=== PATIENT | female | born 1935 | race Caucasian/White ===

== ENCOUNTER 2016-06-17 23:30 | Emergency (ER) | payer OTHER ==
[~2016-06-17] VITALS: Ht 154.9 cm; Wt 43.1 kg
[2016-06-17] MEDS ORDERED: LISINOPRIL40 MG PO (23:47)
[2016-06-17] MEDS ORDERED: NEXIUM 24HR20 MG PO (23:47)
[2016-06-17] MEDS ORDERED: SIMVASTATIN20 MG PO (23:47)
== END 2016-06-18 01:30 | disposition home or self-care (01) ==
LOC: ED 23:30
DX: S70.02XA Contusion of left hip, initial encounter (principal); F17.200 Nicotine dependence, unspecified, uncomplicated; Z90.49 Acquired absence of other specified parts of digestive tract; Z98.890 Other specified postprocedural states; Z88.1 Allergy status to other antibiotic agents; W00.0XXA Fall on same level due to ice and snow, initial encounter; Y93.89 Activity, other specified; Y92.89 Other specified places as the place of occurrence of the external cause; Y99.9 Unspecified external cause status

== ENCOUNTER 2017-04-18 23:19 | Emergency (ER) | payer OTHER ==
[~2017-04-18] VITALS: Ht 154.9 cm; Wt 44.9 kg
[~2017-04-18 23:19] MED LIST: LISINOPRIL40 MG PO; NEXIUM 24HR20 MG PO; SIMVASTATIN20 MG PO
== END 2017-04-19 01:11 | disposition home or self-care (01) ==
LOC: ED 23:19
DX: S90.01XA Contusion of right ankle, initial encounter (principal); F17.200 Nicotine dependence, unspecified, uncomplicated; Z88.1 Allergy status to other antibiotic agents; W10.9XXA Fall (on) (from) unspecified stairs and steps, initial encounter; Y93.89 Activity, other specified; Y92.89 Other specified places as the place of occurrence of the external cause; Y99.8 Other external cause status

== ENCOUNTER → 2018-03-11 | Outpatient (CLI) | payer OTHER | END | disposition home or self-care (01) | LOC: RAD 13:13 | DX: R10.2 Pelvic and perineal pain (principal); Z96.641 Presence of right artificial hip joint ==

== ENCOUNTER → 2018-07-25 | Outpatient (CLI) | payer OTHER | END | disposition home or self-care (01) | LOC: CT 07-15 11:00 | DX: K57.30 Diverticulosis of large intestine without perforation or abscess without bleeding (principal); R11.0 Nausea ==

== ENCOUNTER 2019-03-31 03:31 | Inpatient (IN) | payer OTHER ==
[2019-03-31] VITALS (8 sets, daily range): BP systolic 121–147; BP diastolic 65–86
[~2019-03-31] VITALS: Ht 157.5 cm; Wt 44.2 kg
[2019-03-31 03:49] LABS: BASO # 0.1 10*3/uL (0.0-0.1); BASO % 0.6 % (0.0-1.0); EOS # 0.1 10*3/uL (0.0-0.4); EOS % 1.6 % (1.0-4.0); HEMATOCRIT 32.4 % (37.0-47.0); HEMOGLOBIN 10.4 g/dl (12.0-16.0); LYMPH # 2.6 10*3/uL (1.3-4.4); LYMPH % 32.4 % (27.0-41.0); MEAN CELL VOLUME 103.5 fl (81.0-99.0); MEAN CORPUSCULAR HGB 33.2 pg (27.0-31.0); MEAN CORPUSCULAR HGB CONC 32.1 g/dl (33.0-37.0); MONO # 0.8 10*3/uL (0.1-1.0); MONO % 9.6 % (3.0-9.0); NEUT # 4.4 10*3/uL (2.3-7.9); NEUT % 55.2 % (47.0-73.0); PLATELET COUNT AUTOMATED 344 10*3/uL (130-400); RED BLOOD COUNT 3.13 10*6/uL (4.10-5.10); RED CELL DISTRI WIDTH 12.6 % (0-14.5)
--- NOTE | 2019-03-31 03:55 | NUR ---
PATIENT GIVEN 6MG OF ADENOSINE FOR SVT AT A RATE OF 155. DR KWOK AT BEDSIDE WHILE GIVEN AND HOOKED UP TO THE MONITOR AND REWIND OPERATOR. PATIENT TOLERATED WELL AND 97BPM NSR AT THIS TIME.. SECOND EKG PERFORMED POST ADENOSINE. PATIENT ALERT AND ORIENTED AT THIS TIME AND STATES SHE FEELS MUCH BETTER. RN WILL CONT TO MONITOR PATIENT. CALL LIGHT WITHIN REACH. CONT REWIND OPERATOR IN PLACE.
[2019-03-31 04:00] LABS: ACT PARTIAL THROMBO TIME 30.2 SECONDS (20.0-32.1); INTERNATIONAL NORM RATIO 0.9 (2.0-3.5)
[2019-03-31 04:06] LABS: ALBUMIN 3.4 gm/dl (3.1-4.5); ALKALINE PHOSPHATASE 92 U/L (45-117); BUN 26 mg/dl (7-24); CHLORIDE 108 mmol/L (98-107); CREATININE 1.37 mg/dL (0.55-1.02); POTASSIUM 3.5 mmol/L (3.5-5.1); SGOT/AST 13 IU/L (3-35); SGPT/ALT 14 U/L (12-78); SODIUM 138 mmol/L (136-145); TOTAL PROTEIN 8.6 gm/dL (6.4-8.2); TROPONIN I < 0.015 ng/ml (<0.045)
--- NOTE | 2019-03-31 05:05 | NUR ---
SVP MONETIZATION IN TO DRAW LABS ORDERED BY
--- NOTE | 2019-03-31 05:25 | NUR ---
A 83, admitted to 4E, under the services of Dr. NIMA ROJAS,TAURUS Quigley with a diagnosis of SOB, HEART PALPITATIONS. Chief complaint is SHORTNESS OF BREATH. Patient arrived via stretcher from ER. Monitor applied. Initial assessment completed. Vital signs taken and recorded. DR. NIMA ROJAS,TAURUS Quigley notified of admission to the unit. Orders received. See assessment for past medical history, medications and allergies. Patient and/or family oriented to unit. [address] visitation policy reviewed. Clothing/patient valuable form completed. KATHLEEN SEGOVIA
--- NOTE | 2019-03-31 06:40 | NUR ---
ANSWERING SERVICE ANSWERED CALL NOTIFIED OF CONSULT, MESSAGE LEFT AND PAGE SENT TO ON- CALL DOCTORDARRICK FOR RETURN CALL
--- NOTE | 2019-03-31 08:30 | NUR ---
Hydraulic Corrugating Machine Operator in to talk to patient. Patient states lives at home alone with her family checking in on her. There are 4 steps in the home. Physician: Dr. Stephanie Sousa Pharmacy: [facility] Home health services: none Patient's level of ADLs: INDEPENDENT Patient has working utilities: yes DME: none Follow-up physician's appointment after d/c: she prefers to make her own follow up appt after discharge Does patient want to access PORTAL?: no Discharge plan discussed with patient. She lives at home alone with her family checking in on her. She has a son that checks in on her. She is independent in her ADLs and ambulation. Discussed home health care services and she denies any home needs at this time. When medically stable she will be discharged to home. Her son will provide transportation on discharge. LEAH GAVIRIA
--- NOTE | 2019-03-31 16:02 | NUR ---
TYLENOL GIVEN FOR C/O HEADACHE. WILL MONITOR.
--- NOTE | 2019-03-31 17:05 | NUR ---
TYLENOL EFFECTIVE PER PT.
[2019-04-01] VITALS: BP 145/71
--- NOTE | 2019-04-01 01:58 | NUR ---
24 HR chart check completed.
[2019-04-01 06:45] LABS: THYROXINE (T4) TOTAL 8.7 ug/dl (4.8-13.9)
[2019-04-01 06:52] LABS: THYROID STIM HORMONE (HS) 1.65 uIU/ml (0.358-4.75)
--- NOTE | 2019-04-01 07:39 | NUR ---
PT TO CARDIAC REHAB FOR STRESS TEST. VIA WC
--- NOTE | 2019-04-01 08:52 | NUR ---
INFORMED CONSENT OBTAINED FOR A LEXISAN WITH DR. GUIDO. RESTING EKG NSR, HT RT OF 77, AND BP OF 120/84. POX 99% VIA RA, LUNGS CLEAR AMELIE. COMPLETED ONE MINUTE OF LEXISCAN PROTOCOL 0.4 MG OVER 10 SECONDS. DEVELOPED NAUSEA WITH AN EMESIS OF 120 CC BROWN LIQUID. RELEIVED IN RECOVERY. HAD A PEAK HT RT OF 97, WITH A BP OF 112/70. LAST RECOVERY HT RT OF 107, WITH A BP OF 170/90. AWAITING NUCLEAR IMAGING IN STABLE CONDITION
--- NOTE | 2019-04-01 10:30 | NUR ---
Entry Manager in to see patient. No new needs or request at this time. She denies any home needs. When medically stable she will be discharged to home.
[2019-04-01 10:35] VITALS: BP 148/64
[2019-04-01 11:59] VITALS: BP 146/83
[2019-04-01 16:00] VITALS: BP 138/77
--- NOTE | 2019-04-01 17:33 | NUR ---
PT RESTING IN BED. NO DISTRESS NOTED. NO VOICED C/O. WILL MONITOR
[2019-04-01 20:00] VITALS: BP 116/62
--- NOTE | 2019-04-01 20:21 | NUR ---
PATIENT IS AAOX3 RESTING IN BED WITH EASY AND REGULAR RESPERS ON ROOM AIR. ASSESSMENT IS COMPLETE WITH NO S/S OF DISTRESS NOTED AT THIS TIME. BED IS LOW, LOCKED, AND CALL LIGHT IS WITHIN REACH. BOXED LOUCH PROVIDED FOR PATIENT C/O HUNGER. WILL CONTINUE TO MONITOR SEE SHIFT ASSESSMENT.
[2019-04-02] VITALS: BP 138/73
--- NOTE | 2019-04-02 04:44 | NUR ---
24 HR. CHART CHECK COMPLETE.
--- NOTE | 2019-04-02 05:40 | NUR ---
PATIENT AWAKENES EASILY FOR ADMINISTRATION OF AM MEDICATION. PATIENT C/O HEADACHE RATING A 4/10. PRN TYLENOL PROVIDED, CALL LIGHT IS WITHIN REACH, WILL MONITOR EFFECT OF MEDICATION.
[2019-04-02 08:00] VITALS: BP 148/80
[2019-04-02] MEDS ORDERED: PREDNISONE5 MG PO (08:06)
[2019-04-02] MEDS ORDERED: METOPROLOL SUCC25 M2 PO (08:06)
--- NOTE | 2019-04-02 08:08 | NUR ---
PT RESTING IN BED/ NO DISTRESS NOTED. WILL MONITOR
--- NOTE | 2019-04-02 09:30 | NUR ---
Discharge instructions reviewed with patient/family. Patient receptive and verbalizes understanding. Follow-up care arranged. Written instructions given to patient/family. ARLINE BHATIA
== END 2019-04-02 09:30 | disposition home or self-care (01) | DRG 202 ==
LOC: ED 03:31 → 4E 04:54 → EDHOLD 04:54 → 4E 05:02
PROVIDERS: Emergency Medicine; Internal Medicine; ADMIT Internal Medicine
PROC: 4A02XM4 Measurement of Cardiac Total Activity, External Approach (ICD-10-PCS; principal; 2019-04-01)
PROC: 3E073KZ Introduction of Other Diagnostic Substance into Coronary Artery, Percutaneous Approach (ICD-10-PCS; principal; 2019-04-01)
DX: J20.9 Acute bronchitis, unspecified (principal); I47.1 Supraventricular tachycardia; I10 Essential (primary) hypertension; E78.2 Mixed hyperlipidemia; I25.9 Chronic ischemic heart disease, unspecified; J44.9 Chronic obstructive pulmonary disease, unspecified; F17.210 Nicotine dependence, cigarettes, uncomplicated; E78.5 Hyperlipidemia, unspecified; Z88.1 Allergy status to other antibiotic agents; Z79.899 Other long term (current) drug therapy; Z87.19 Personal history of other diseases of the digestive system

== ENCOUNTER 2019-10-02 20:50 | Inpatient (IN) | payer OTHER ==
[~2019-10-02] VITALS: Ht 157.4 cm; Wt 47.9 kg
[~2019-10-02 20:50] MED LIST changes: +METOPROLOL SUCC25 M2 PO; +NEXIUM 24HR20 M2 PO; -NEXIUM 24HR20 MG PO; +PREDNISONE5 MG PO
[2019-10-02 20:59] VITALS: BP 98/64
[2019-10-02 21:16] LABS: BASO # 0.1 10*3/uL (0.0-0.1); BASO % 0.7 % (0.0-1.0); EOS # 0.1 10*3/uL (0.0-0.4); EOS % 0.9 % (1.0-4.0); HEMATOCRIT 35.9 % (37.0-47.0); LYMPH # 2.4 10*3/uL (1.3-4.4); LYMPH % 26.5 % (27.0-41.0); MEAN CELL VOLUME 100.3 fl (81.0-99.0); MEAN CORPUSCULAR HGB 32.7 pg (27.0-31.0); MEAN CORPUSCULAR HGB CONC 32.6 g/dl (33.0-37.0); MEAN PLATELET VOLUME 9.6 fl (9.6-12.3); MONO # 0.6 10*3/uL (0.1-1.0); MONO % 6.4 % (3.0-9.0); NEUT # 5.8 10*3/uL (2.3-7.9); PLATELET COUNT AUTOMATED 315 10*3/uL (130-400); RED BLOOD COUNT 3.58 10*6/uL (4.10-5.10); WHITE BLOOD COUNT 8.9 10*3/uL (4.8-10.8)
--- NOTE | 2019-10-02 21:26 | NUR ---
PT ON CARDIZEM DRIP HEART RATE 170 PT HAD 10MG CARDIZEM BOLUS HEART RATE DROPPED TO 88 CARDIZEM DRIP STOPPED PER LEDY DYE CHIEF LENDING OFFICER WILL CONTINUE TO MONITOR
[2019-10-02 21:27] LABS: ACT PARTIAL THROMBO TIME 24.7 SECONDS (20.0-32.1)
[2019-10-02 21:32] LABS: ALKALINE PHOSPHATASE 70 U/L (45-117); BUN 29 mg/dl (7-24); CHLORIDE 109 mmol/L (98-107); CREATININE 1.48 mg/dL (0.55-1.02); POTASSIUM 3.9 mmol/L (3.5-5.1); SGOT/AST 34 IU/L (3-35); SGPT/ALT 19 U/L (12-78); SODIUM 141 mmol/L (136-145); TOTAL PROTEIN 8.3 gm/dL (6.4-8.2)
[2019-10-02 21:33] VITALS: BP 105/58
[2019-10-02 21:35] LABS: TROPONIN I < 0.015 ng/ml (<0.045)
[2019-10-02 22:10] VITALS: BP 104/55
--- NOTE | 2019-10-02 22:11 | NUR ---
PT RESTING IN BED WITH EYES OPEN NO DISTRESS NOTED AT THIS TIME WILL CONTINUE TO MONITOR
[2019-10-03] VITALS: BP 151/78
--- NOTE | 2019-10-03 00:05 | NUR ---
A 83, admitted to , under the services of Dr. NIMA ROJAS,TAURUS Quigley with a diagnosis of SVT. Chief complaint is DIZZINESS,JAW PAIN, AND HEART RACING. Patient arrived via stretcher from ER. Monitor applied. Initial assessment completed. Vital signs taken and recorded. DR. NIMA ROJAS,ATURUS Quigley notified of admission to the unit. Orders received. See assessment for past medical history, medications and allergies. Patient and/or family oriented to unit. [facility] visitation policy reviewed. Clothing/patient valuable form completed. ЕЛЕНА HARRISON
--- NOTE | 2019-10-03 00:10 | NUR ---
PER CHARITY CAREY IN ER: CARDIOLOGY DR. VILLARREAL NOTIFIED AND IS AWARE OF CONSULT
[2019-10-03 03:51] LABS: BASO % 0.6 % (0.0-1.0); EOS # 0.1 10*3/uL (0.0-0.4); HEMATOCRIT 29.5 % (37.0-47.0); LYMPH # 1.6 10*3/uL (1.3-4.4); LYMPH % 25.8 % (27.0-41.0); MEAN CELL VOLUME 101.7 fl (81.0-99.0); MEAN CORPUSCULAR HGB 33.4 pg (27.0-31.0); MEAN CORPUSCULAR HGB CONC 32.9 g/dl (33.0-37.0); MEAN PLATELET VOLUME 9.7 fl (9.6-12.3); MONO # 0.5 10*3/uL (0.1-1.0); MONO % 7.9 % (3.0-9.0); NEUT # 4.1 10*3/uL (2.3-7.9); NEUT % 64.5 % (47.0-73.0); PLATELET COUNT AUTOMATED 221 10*3/uL (130-400); RED CELL DISTRI WIDTH 13.2 % (0-14.5); WHITE BLOOD COUNT 6.3 10*3/uL (4.8-10.8)
--- NOTE | 2019-10-03 04:30 | NUR ---
HEPARIN DRIP INITIATED PER ORDER.
--- NOTE | 2019-10-03 05:16 | NUR ---
Shift chart check completed.
[2019-10-03 08:00] VITALS: BP 145/84
--- NOTE | 2019-10-03 10:30 | NUR ---
APTT 38.6, HEPARIN ADJUSTED PER POLICY. NEW APTT ORDERED FOR 1630
--- NOTE | 2019-10-03 11:20 | NUR ---
SPOKE WITH DR STONE WHO STATES PT IS DR RAINES'S. HE HAS SEEN PT IN PAST. CONSULT ORDER PUT IN FOR DR RAINES.
--- NOTE | 2019-10-03 11:25 | NUR ---
CALLED ANSWERING SERVICE RE: NEW CONSULT. DR THAYER TO CALL BACK HE IS CUPOLA MELTER FOR DR RAINES.
--- NOTE | 2019-10-03 11:39 | NUR ---
DR THAYER NOTIFIED OF CONSULT, UPDTATED ON LABS AND HEPARIN DRIP. HE STATES OK AND HE WILL SEE THE PT IN THE MORNING.
[2019-10-03 12:00] VITALS: BP 156/74
--- NOTE | 2019-10-03 12:08 | NUR ---
PT TROPONIN OF 0.307 REPORTED TO THIS NURSE FROM LAB. WILL NOTIFY PHYSICIAN.
--- NOTE | 2019-10-03 12:50 | NUR ---
DR HERRING HERE ON UNIT. NOTIFIED OF TROPONINS AND CONSULT CHANGE TO DR RAINES AND THAT DR THAYER IS COVERING AND WILL SEE THE PATIENT TOMORROW
[2019-10-03 16:00] VITALS: BP 110/72
[2019-10-03 20:00] VITALS: BP 155/82
[2019-10-04] VITALS: BP 148/74
--- NOTE | 2019-10-04 07:26 | NUR ---
DR HERRING NOTIFIED OF CRITICAL APTT
--- NOTE | 2019-10-04 07:59 | NUR ---
DR THAYER HERE TO SEE PT
--- NOTE | 2019-10-04 08:31 | NUR ---
PT SITTING UP IN BED, EATING BREAKFAST. NO DISTRESS NOTED/ WILL MONITOR
[2019-10-04 12:00] VITALS: BP 128/67
[2019-10-04 16:00] VITALS: BP 112/92; BP 120/68
--- NOTE | 2019-10-04 19:48 | NUR ---
ASSUMED CARE OF PT AT THIS TIME. UPDATED ON PLAN OF CARE. ALL SAFETY MEASURES IN PLACE; CONT TO MONTIOR.
[2019-10-04 20:00] VITALS: BP 135/70
[2019-10-05] VITALS: BP 144/69
--- NOTE | 2019-10-05 07:57 | NUR ---
PT RESTING IN BED. EATING BREAKFAST. NO DISTRESS NOTED. WILL MONITOR
[2019-10-05 08:00] VITALS: BP 162/78
--- NOTE | 2019-10-05 09:50 | NUR ---
Gravity Prospecting Operator in to talk to patient. Patient states lives at home alone with her son, Vlad, who lives in [facility] calling and stopping in to check on her. There are 4 outside steps into her home. Physician: Dr. Stephanie Sousa Pharmacy: [facility] services: none Patient's level of ADLs: INDEPENDENT Patient has working utilities: yes DME: none Follow-up physician's appointment after d/c: she prefers to make her own follow up appt after discharge Does patient want to access PORTAL?: no Discharge plan discussed with patient. She lives at home with her son checking in on her. She is independent in her ADLs and ambulation. Discussed home health care services and she denies any home needs. When medically stable she will be discharged to home. She states her son, Vlad Mahan, will provide transportation on discharge. LEAH GAVIRIA
[2019-10-05] MEDS ORDERED: METOPROLOL TART50 M1 PO (11:50)
--- NOTE | 2019-10-05 14:12 | NUR ---
Discharge instructions reviewed with patient/family. Patient receptive and verbalizes understanding. Follow-up care arranged. Written instructions given to patient/family. ARLINE BHATIA
== END 2019-10-05 14:12 | disposition home or self-care (01) | DRG 308 ==
LOC: ED 20:50 → 4E 23:25 → EDHOLD 23:25 → 4E 23:50
PROVIDERS: Emergency Medicine Emergency Medical Services; Internal Medicine Cardiovascular Disease; ADMIT Internal Medicine
DX: I47.1 Supraventricular tachycardia (principal); N17.0 Acute kidney failure with tubular necrosis; I24.8 Other forms of acute ischemic heart disease; I10 Essential (primary) hypertension; I25.10 Atherosclerotic heart disease of native coronary artery without angina pectoris; E78.2 Mixed hyperlipidemia; F17.200 Nicotine dependence, unspecified, uncomplicated; K21.0 Gastro-esophageal reflux disease with esophagitis; Z96.643 Presence of artificial hip joint, bilateral; Z88.1 Allergy status to other antibiotic agents; Z79.899 Other long term (current) drug therapy

== ENCOUNTER → 2020-04-15 | Outpatient (CLI) | payer OTHER ==
[~2020-04-15] MED LIST changes: +ASPIRIN CHEWABL81 MG PO; +LABETALOL HCL100 MG PO; +METOPROLOL TART50 M1 PO; +PRESERVISION A1 EAC1 PO; +VITAMIN D31250 MCG PO
== END | disposition home or self-care (01) ==
LOC: COVID19 00:21
PROVIDERS: ATTEND Ophthalmology
DX: Z01.812 Encounter for preprocedural laboratory examination (principal); Z20.828 Contact with and (suspected) exposure to other viral communicable diseases

== ENCOUNTER → 2020-04-20 | Day surgery (SDC) | payer OTHER ==
[~2020-04-20] VITALS: Ht 157.4 cm; Wt 49.9 kg
[2020-04-20 09:30] VITALS: BP 151/76
[2020-04-20 10:48] VITALS: BP 139/88
[2020-04-20 11:05] VITALS: BP 161/76
[2020-04-20 11:19] VITALS: BP 151/73
== END ==
LOC: SDC 04-15 12:30
PROVIDERS: ATTEND Ophthalmology
DX: H25.812 Combined forms of age-related cataract, left eye (principal); I10 Essential (primary) hypertension; E78.5 Hyperlipidemia, unspecified; Z96.643 Presence of artificial hip joint, bilateral; K21.9 Gastro-esophageal reflux disease without esophagitis; Z90.49 Acquired absence of other specified parts of digestive tract; Z98.890 Other specified postprocedural states; Z79.899 Other long term (current) drug therapy

== ENCOUNTER → 2020-07-15 | Outpatient (CLI) | payer OTHER ==
[~2020-07-15] MED LIST changes: +AMOXICILLIN500 M2 PO
== END | disposition home or self-care (01) ==
LOC: COVID19 12:15
PROVIDERS: ATTEND Ophthalmology
DX: Z01.818 Encounter for other preprocedural examination (principal); Z20.822 Contact with and (suspected) exposure to COVID-19

== ENCOUNTER → 2020-07-20 | Day surgery (SDC) | payer OTHER ==
[~2020-07-20] VITALS: Ht 154.9 cm; Wt 47.6 kg
[2020-07-20 10:40] VITALS: BP 164/85
[2020-07-20 11:58] VITALS: BP 153/73
[2020-07-20 12:15] VITALS: BP 149/68
[2020-07-20 12:25] VITALS: BP 152/77
== END ==
LOC: SDC 05-20 11:45
PROVIDERS: ATTEND Ophthalmology
DX: H25.811 Combined forms of age-related cataract, right eye (principal); I10 Essential (primary) hypertension; K21.9 Gastro-esophageal reflux disease without esophagitis; E78.5 Hyperlipidemia, unspecified; Z79.82 Long term (current) use of aspirin; Z79.899 Other long term (current) drug therapy; Z98.890 Other specified postprocedural states; Z96.643 Presence of artificial hip joint, bilateral

== ENCOUNTER 2020-09-01 14:23 | Emergency (ER) | payer OTHER ==
[~2020-09-01] VITALS: Ht 152.4 cm; Wt 45.4 kg
[~2020-09-01 14:23] MED LIST changes: -AMOXICILLIN500 M2 PO
[2020-09-01 15:34] LABS: BASO % 0.4 % (0.0-1.0); EOS # 0.1 10*3/uL (0.0-0.4); EOS % 1.2 % (1.0-4.0); LYMPH # 1.4 10*3/uL (1.3-4.4); LYMPH % 21.6 % (27.0-41.0); MEAN CELL VOLUME 102.7 fl (81.0-99.0); MEAN CORPUSCULAR HGB 32.9 pg (27.0-31.0); MEAN PLATELET VOLUME 9.6 fl (9.6-12.3); MONO # 0.5 10*3/uL (0.1-1.0); MONO % 8.1 % (3.0-9.0); NEUT # 4.6 10*3/uL (2.3-7.9); NEUT % 68.4 % (47.0-73.0); PLATELET COUNT AUTOMATED 231 10*3/uL (130-400); RED BLOOD COUNT 2.92 10*6/uL (4.10-5.10); RED CELL DISTRI WIDTH 12.1 % (0-14.5); WHITE BLOOD COUNT 6.7 10*3/uL (4.8-10.8)
[2020-09-01 15:54] LABS: ALBUMIN 3.9 gm/dl (3.1-4.5); ALKALINE PHOSPHATASE 75 U/L (45-117); BUN 23 mg/dl (7-24); CHLORIDE 111 mmol/L (98-107); CREATININE 1.17 mg/dL (0.55-1.02); POTASSIUM 4.9 mmol/L (3.5-5.1); SGOT/AST 11 IU/L (3-35); SGPT/ALT 10 U/L (12-78); SODIUM 140 mmol/L (136-145); TOTAL PROTEIN 8.3 gm/dL (6.4-8.2)
[2020-09-01 16:02] LABS: TROPONIN I < 0.015 ng/ml (<0.045)
[2020-09-01 16:49] LABS: BILIRUBIN Negative (Negative); BLOOD Negative (Negative); CLARITY Clear (Clear); COLOR Yellow (Yellow); GLUCOSE Negative (Negative); KETONE Negative (Negative); LEUKO ESTERASE Negative (Negative); NITRITE Negative (Negative); SPECIFIC GRAVITY 1.015 (1.001-1.030); UROBILINOGEN 0.2 E.U./dl (0.0-1.0)
[2020-09-01 17:08] LABS: BACTERIA 1+
[2020-09-01] MEDS ORDERED: AMOXICILLIN500 M2 PO (18:45)
== END 2020-09-01 14:35 | disposition home or self-care (01) ==
LOC: ED 14:23
PROVIDERS: Nurse Practitioner
DX: H66.92 Otitis media, unspecified, left ear (principal); E86.0 Dehydration; E78.5 Hyperlipidemia, unspecified; Z88.8 Allergy status to other drugs, medicaments and biological substances; Z79.899 Other long term (current) drug therapy; Z98.890 Other specified postprocedural states; Z90.49 Acquired absence of other specified parts of digestive tract; Z87.891 Personal history of nicotine dependence

== ENCOUNTER → 2021-01-03 | Outpatient (CLI) | payer OTHER ==
[~2021-01-03] MED LIST changes: +AMOXICILLIN500 M2 PO; +HYDROCORTISON28.4 G6 T; +IRON325 M1 PO
== END | disposition home or self-care (01) ==
LOC: RAD 16:08
PROVIDERS: ATTEND Internal Medicine
DX: M25.552 Pain in left hip (principal); Z96.642 Presence of left artificial hip joint; Z91.81 History of falling

== ENCOUNTER 2021-01-11 08:20 | Inpatient (IN) | payer OTHER ==
[~2021-01-11] VITALS: Ht 157.4 cm; Wt 47.2 kg
[2021-01-11] VITALS (8 sets, daily range): BP systolic 95–141; BP diastolic 57–80
[~2021-01-11 08:20] MED LIST changes: -HYDROCORTISON28.4 G6 T; -IRON325 M1 PO
[2021-01-11 08:42] LABS: BASO % 0.5 % (0.0-1.0); EOS # 0.1 10*3/uL (0.0-0.4); EOS % 2.2 % (1.0-4.0); HEMATOCRIT 31.8 % (37.0-47.0); LYMPH # 1.6 10*3/uL (1.3-4.4); LYMPH % 25.1 % (27.0-41.0); MEAN CORPUSCULAR HGB CONC 31.4 g/dl (33.0-37.0); MEAN PLATELET VOLUME 9.9 fl (9.6-12.3); MONO # 0.6 10*3/uL (0.1-1.0); MONO % 8.5 % (3.0-9.0); NEUT # 4.1 10*3/uL (2.3-7.9); NEUT % 63.4 % (47.0-73.0); PLATELET COUNT AUTOMATED 280 10*3/uL (130-400); RED BLOOD COUNT 3.03 10*6/uL (4.10-5.10); RED CELL DISTRI WIDTH 13.4 % (0-14.5); WHITE BLOOD COUNT 6.5 10*3/uL (4.8-10.8)
[2021-01-11 09:10] LABS: ALBUMIN 3.9 gm/dl (3.1-4.5); ALKALINE PHOSPHATASE 180 U/L (45-117); BUN 20 mg/dl (7-24); CHLORIDE 109 mmol/L (98-107); CREATININE 0.99 mg/dL (0.55-1.02); POTASSIUM 4.1 mmol/L (3.5-5.1); SGOT/AST 16 IU/L (3-35); SGPT/ALT 14 U/L (12-78); SODIUM 140 mmol/L (136-145); TOTAL PROTEIN 8.1 gm/dL (6.4-8.2)
[2021-01-11 09:11] LABS: TROPONIN I < 0.015 ng/ml (<0.045)
[2021-01-11] MEDS ORDERED: IRON325 M1 PO (12:43)
[2021-01-12] VITALS: BP 138/61
[2021-01-12 06:05] LABS: FREE T4 0.7 ng/dl (0.76-1.46)
[2021-01-12 06:10] LABS: THYROID STIM HORMONE (HS) 2.87 uIU/ml (0.358-4.75)
[2021-01-12 08:00] VITALS: BP 149/69
[2021-01-12 16:00] VITALS: BP 120/55
[2021-01-12 20:00] VITALS: BP 135/83
[2021-01-13 08:00] VITALS: BP 151/78
[2021-01-13 11:18] VITALS: BP 151/79
== END 2021-01-13 12:57 | disposition home or self-care (01) | DRG 310 ==
LOC: ED 08:20 → EDHOLD 10:17 → 5E 10:17 → EDHOLD 10:17 → 5E 11:12
PROVIDERS: Family Medicine; Student in an Organized Health Care Education/Training Program; ADMIT Internal Medicine; ATTEND Internal Medicine
PROC: 4A02XM4 Measurement of Cardiac Total Activity, External Approach (ICD-10-PCS; principal; 2021-01-12)
PROC: 3E073KZ Introduction of Other Diagnostic Substance into Coronary Artery, Percutaneous Approach (ICD-10-PCS; 2021-01-12)
DX: I47.1 Supraventricular tachycardia (principal); I10 Essential (primary) hypertension; I25.10 Atherosclerotic heart disease of native coronary artery without angina pectoris; E78.2 Mixed hyperlipidemia; K21.00 Gastro-esophageal reflux disease with esophagitis, without bleeding; Z88.8 Allergy status to other drugs, medicaments and biological substances; Z79.899 Other long term (current) drug therapy

== ENCOUNTER 2021-02-04 11:50 | Emergency (ER) | payer OTHER ==
[~2021-02-04] VITALS: Ht 152.4 cm; Wt 45.4 kg
[~2021-02-04 11:50] MED LIST changes: +IRON325 M1 PO
[2021-02-04] MEDS ORDERED: HYDROCORTISON28.4 G6 T (13:01)
== END 2021-02-04 12:59 | disposition home or self-care (01) ==
LOC: ED 11:50
DX: R21 Rash and other nonspecific skin eruption (principal); Z88.1 Allergy status to other antibiotic agents; Z79.899 Other long term (current) drug therapy; Z79.82 Long term (current) use of aspirin

== ENCOUNTER → 2021-08-08 | Outpatient (CLI) | payer OTHER ==
[~2021-08-08] MED LIST changes: +ASPIR-TRIN325 MG PO; +FLAGYL 375375 MG PO; +HYDROCORTISON28.4 G6 T; +LEVOFLOXACIN500 MG PO
[2021-08-08 09:56] LABS: BASO % 0.7 % (0.0-1.0); EOS # 0.1 10*3/uL (0.0-0.4); EOS % 2.8 % (1.0-4.0); HEMATOCRIT 30.5 % (37.0-47.0); LYMPH # 1.2 10*3/uL (1.3-4.4); LYMPH % 28.7 % (27.0-41.0); MEAN CORPUSCULAR HGB 33.1 pg (27.0-31.0); MEAN CORPUSCULAR HGB CONC 32.5 g/dl (33.0-37.0); MEAN PLATELET VOLUME 9.3 fl (9.6-12.3); MONO # 0.5 10*3/uL (0.1-1.0); MONO % 11.3 % (3.0-9.0); NEUT # 2.4 10*3/uL (2.3-7.9); PLATELET COUNT AUTOMATED 272 10*3/uL (130-400); RED BLOOD COUNT 2.99 10*6/uL (4.10-5.10); RED CELL DISTRI WIDTH 12.4 % (0-14.5); WHITE BLOOD COUNT 4.3 10*3/uL (4.8-10.8)
[2021-08-08 10:26] LABS: CREATININE 1.24 mg/dL (0.55-1.02); POTASSIUM 4.5 mmol/L (3.5-5.1); THYROXINE (T4) TOTAL 9.2 ug/dl (4.8-13.9); TOTAL PROTEIN 8.1 gm/dL (6.4-8.2)
[2021-08-08 10:30] LABS: THYROID STIM HORMONE (HS) 2.24 uIU/ml (0.358-4.75)
[2021-08-08 11:12] LABS: VITAMIN D, 25-HYDROXY 120.5 ng/mL (30-100)
== END ==
LOC: RAD 08:33 → LAB 08:33 → RAD 09:00
PROVIDERS: ATTEND Internal Medicine
DX: M81.0 Age-related osteoporosis without current pathological fracture (principal); N95.0 Postmenopausal bleeding; F17.210 Nicotine dependence, cigarettes, uncomplicated; E78.2 Mixed hyperlipidemia; K57.32 Diverticulitis of large intestine without perforation or abscess without bleeding; N18.30 Chronic kidney disease, stage 3 unspecified; E55.9 Vitamin D deficiency, unspecified

== ENCOUNTER 2022-05-31 13:39 | Emergency (ER) | payer OTHER ==
[~2022-05-31] VITALS: Ht 157.4 cm; Wt 47.6 kg
[2022-05-31 14:19] LABS: BASO % 0.8 % (0.0-1.0); EOS # 0.1 10*3/uL (0.0-0.4); EOS % 2.2 % (1.0-4.0); HEMATOCRIT 33.9 % (37.0-47.0); LYMPH # 1.2 10*3/uL (1.3-4.4); LYMPH % 23.1 % (27.0-41.0); MEAN CORPUSCULAR HGB 34.4 pg (27.0-31.0); MEAN PLATELET VOLUME 9.5 fl (9.6-12.3); MONO # 0.4 10*3/uL (0.1-1.0); MONO % 8.3 % (3.0-9.0); NEUT # 3.3 10*3/uL (2.3-7.9); NEUT % 65.2 % (47.0-73.0); PLATELET COUNT AUTOMATED 239 10*3/uL (130-400); RED BLOOD COUNT 3.26 10*6/uL (4.10-5.10); RED CELL DISTRI WIDTH 12.3 % (0-14.5); WHITE BLOOD COUNT 5.1 10*3/uL (4.8-10.8)
[2022-05-31 14:38] LABS: ACT PARTIAL THROMBO TIME 25.3 SECONDS (20.0-32.1); ALKALINE PHOSPHATASE 71 U/L (46-116); BUN 13 mg/dl (9-23); CHLORIDE 104 mmol/L (98-107); CREATININE 1.04 mg/dL (0.55-1.02); INTERNATIONAL NORM RATIO 0.9 (2.0-3.5); LIPASE 47 U/L (12-53); POTASSIUM 3.9 mmol/L (3.4-5.1); SODIUM 138 mmol/L (136-145); TOTAL PROTEIN 7.9 gm/dL (6.0-8.0)
[2022-05-31 14:59] LABS: SGPT/ALT 14 U/L (12-78)
[2022-05-31] MEDS ORDERED: NORMODYNE,TRAN200 MG PO (15:15)
== END 2022-05-31 15:26 | disposition home or self-care (01) ==
LOC: ED 13:39
PROVIDERS: Emergency Medicine
DX: I10 Essential (primary) hypertension (principal); Z88.1 Allergy status to other antibiotic agents; Z79.899 Other long term (current) drug therapy; Z79.82 Long term (current) use of aspirin; Z90.49 Acquired absence of other specified parts of digestive tract; Z98.890 Other specified postprocedural states

== ENCOUNTER → 2022-06-15 | Outpatient (CLI) | payer OTHER ==
[~2022-06-15] MED LIST changes: +NORMODYNE,TRAN200 MG PO
[2022-06-15 12:16] LABS: CREATININE 1.18 mg/dL (0.55-1.02)
== END | disposition home or self-care (01) ==
LOC: LAB 11:25
PROVIDERS: ATTEND Internal Medicine
DX: Z01.812 Encounter for preprocedural laboratory examination (principal); R22.1 Localized swelling, mass and lump, neck

== ENCOUNTER → 2022-06-19 | Outpatient (CLI) | payer OTHER | END | disposition home or self-care (01) | LOC: CT 00:45 | PROVIDERS: ATTEND Internal Medicine | DX: S02.609A Fracture of mandible, unspecified, initial encounter for closed fracture (principal); M50.30 Other cervical disc degeneration, unspecified cervical region; X58.XXXA Exposure to other specified factors, initial encounter; Y93.89 Activity, other specified; Y92.89 Other specified places as the place of occurrence of the external cause; Y99.8 Other external cause status ==

== ENCOUNTER → 2022-08-21 | Outpatient (CLI) | payer OTHER ==
[2022-08-21 11:55] LABS: BASO % 0.8 % (0.0-1.0); EOS # 0.1 10*3/uL (0.0-0.4); EOS % 1.4 % (1.0-4.0); HEMATOCRIT 31.4 % (37.0-47.0); LYMPH # 1.6 10*3/uL (1.3-4.4); LYMPH % 31.3 % (27.0-41.0); MEAN CELL VOLUME 105.4 fl (81.0-99.0); MEAN CORPUSCULAR HGB 34.2 pg (27.0-31.0); MEAN CORPUSCULAR HGB CONC 32.5 g/dl (33.0-37.0); MEAN PLATELET VOLUME 9.1 fl (9.6-12.3); MONO # 0.4 10*3/uL (0.1-1.0); NEUT % 58.3 % (47.0-73.0); PLATELET COUNT AUTOMATED 232 10*3/uL (130-400); RED BLOOD COUNT 2.98 10*6/uL (4.10-5.10); RED CELL DISTRI WIDTH 13.1 % (0-14.5); WHITE BLOOD COUNT 5.1 10*3/uL (4.8-10.8)
[2022-08-21 12:17] LABS: FREE T4 0.97 ng/dl (0.89-1.76); POTASSIUM 4.8 mmol/L (3.4-5.1); THYROID STIM HORMONE (HS) 1.371 uIU/ml (0.550-4.780); TOTAL PROTEIN 7.5 gm/dL (6.0-8.0)
[2022-08-21 12:42] LABS: VITAMIN D, 25-HYDROXY 147.3 ng/mL (30-100)
== END | disposition home or self-care (01) ==
LOC: LAB 11:27
PROVIDERS: ATTEND Internal Medicine
DX: I12.9 Hypertensive chronic kidney disease with stage 1 through stage 4 chronic kidney disease, or unspecified chronic kidney disease (principal); N18.32 Chronic kidney disease, stage 3b; D63.1 Anemia in chronic kidney disease; E78.2 Mixed hyperlipidemia; E55.9 Vitamin D deficiency, unspecified; Z13.0 Encounter for screening for diseases of the blood and blood-forming organs and certain disorders involving the immune mechanism; Z13.1 Encounter for screening for diabetes mellitus; Z13.228 Encounter for screening for other metabolic disorders; Z13.220 Encounter for screening for lipoid disorders; Z13.6 Encounter for screening for cardiovascular disorders; Z13.21 Encounter for screening for nutritional disorder

== ENCOUNTER 2022-10-28 11:13 | Emergency (ER) | payer OTHER ==
[~2022-10-28] VITALS: Ht 154.9 cm; Wt 47.2 kg
[2022-10-28] MEDS ORDERED: TRAMADOL HCL50 MG PO (12:38)
== END 2022-10-28 12:49 | disposition home or self-care (01) ==
LOC: ED 11:13
DX: S09.90XA Unspecified injury of head, initial encounter (principal); M25.511 Pain in right shoulder; M25.552 Pain in left hip; Z88.1 Allergy status to other antibiotic agents; Z79.899 Other long term (current) drug therapy; Z79.82 Long term (current) use of aspirin; Z90.49 Acquired absence of other specified parts of digestive tract; W18.2XXA Fall in (into) shower or empty bathtub, initial encounter; Y93.89 Activity, other specified; Y92.89 Other specified places as the place of occurrence of the external cause; Y99.8 Other external cause status

== ENCOUNTER 2023-02-05 15:17 | Emergency (ER) | payer OTHER ==
[~2023-02-05] VITALS: Wt 47.6 kg
[~2023-02-05 15:17] MED LIST changes: +TRAMADOL HCL50 MG PO
[2023-02-05 16:04] LABS: BASO % 0.4 % (0.0-1.0); EOS # 0.1 10*3/uL (0.0-0.4); EOS % 1.2 % (1.0-4.0); LYMPH % 20.3 % (27.0-41.0); MEAN CELL VOLUME 103.1 fl (81.0-99.0); MEAN CORPUSCULAR HGB 33.7 pg (27.0-31.0); MEAN CORPUSCULAR HGB CONC 32.7 g/dl (33.0-37.0); MEAN PLATELET VOLUME 9.1 fl (9.6-12.3); MONO # 0.4 10*3/uL (0.1-1.0); MONO % 7.8 % (3.0-9.0); NEUT # 3.4 10*3/uL (2.3-7.9); NEUT % 69.9 % (47.0-73.0); PLATELET COUNT AUTOMATED 241 10*3/uL (130-400); RED BLOOD COUNT 2.91 10*6/uL (4.10-5.10); RED CELL DISTRI WIDTH 12.2 % (0-14.5); WHITE BLOOD COUNT 4.9 10*3/uL (4.8-10.8)
[2023-02-05 16:32] LABS: POTASSIUM 5.1 mmol/L (3.4-5.1); TOTAL PROTEIN 7.9 gm/dL (6.0-8.0)
== END 2023-02-05 18:27 | disposition home or self-care (01) ==
LOC: ED 15:17
PROVIDERS: Physician Assistant Medical
DX: J40 Bronchitis, not specified as acute or chronic (principal); Z20.822 Contact with and (suspected) exposure to COVID-19; R42 Dizziness and giddiness; I10 Essential (primary) hypertension; E78.5 Hyperlipidemia, unspecified; F17.200 Nicotine dependence, unspecified, uncomplicated; Z88.1 Allergy status to other antibiotic agents; Z79.899 Other long term (current) drug therapy; Z79.82 Long term (current) use of aspirin; Z98.890 Other specified postprocedural states

== ENCOUNTER 2024-01-01 15:55 | Emergency (ER) | payer OTHER ==
[~2024-01-01] VITALS: Ht 154.9 cm; Wt 40.8 kg
[~2024-01-01 15:55] MED LIST changes: +AMLODIPINE BESYL5 MG PO; +CEFUROXIME AXE250 MG PO; +LISINOPRIL20 MG PO; +METRONIDAZOLE500 M1 PO; +NEXIUM20 M1 PO; +PROTONIX40 MG PO; +VANCOMYCIN HCL250 MG PO
[2024-01-01] MEDS ORDERED: Tdap Vaccine 0.5 ML SYR (Adult Vaccine) IM ONE (19:00)
== END 2024-01-01 19:05 | disposition home or self-care (01) ==
LOC: ED 15:55
DX: S01.01XA Laceration without foreign body of scalp, initial encounter (principal); Z88.1 Allergy status to other antibiotic agents; Z79.899 Other long term (current) drug therapy; Z79.2 Long term (current) use of antibiotics; Z98.890 Other specified postprocedural states; Z90.49 Acquired absence of other specified parts of digestive tract; Z96.642 Presence of left artificial hip joint; W18.00XA Striking against unspecified object with subsequent fall, initial encounter; Y93.89 Activity, other specified; Y92.090 Kitchen in other non-institutional residence as the place of occurrence of the external cause; Y99.8 Other external cause status

== ENCOUNTER → 2024-07-16 | Outpatient (CLI) | payer OTHER | END | disposition home or self-care (01) | LOC: RAD 13:15 | PROVIDERS: ATTEND Internal Medicine | DX: M25.552 Pain in left hip (principal); Z91.81 History of falling; Z96.642 Presence of left artificial hip joint ==

== ENCOUNTER 2024-10-20 23:54 | Emergency (ER) | payer OTHER ==
[~2024-10-20] VITALS: Ht 157.4 cm; Wt 47.2 kg
[2024-10-21 00:25] LABS: BASO % 0.3 % (0.0-1.0); EOS # 0.2 10*3/uL (0.0-0.4); EOS % 1.4 % (1.0-4.0); HEMATOCRIT 34.5 % (37.0-47.0); MEAN CELL VOLUME 102.7 fl (81.0-99.0); MEAN CORPUSCULAR HGB CONC 32.2 g/dl (33.0-37.0); MEAN PLATELET VOLUME 9.1 fl (9.6-12.3); MONO # 0.7 10*3/uL (0.1-1.0); MONO % 5.2 % (3.0-9.0); NEUT # 10.6 10*3/uL (2.3-7.9); NEUT % 79.8 % (47.0-73.0); PLATELET COUNT AUTOMATED 290 10*3/uL (130-400); RED BLOOD COUNT 3.36 10*6/uL (4.10-5.10); RED CELL DISTRI WIDTH 12.3 % (0-14.5); WHITE BLOOD COUNT 13.2 10*3/uL (4.8-10.8)
[2024-10-21 00:55] LABS: POTASSIUM 3.9 mmol/L (3.4-5.1); TOTAL PROTEIN 7.9 gm/dL (6.0-8.0)
[2024-10-21 01:52] LABS: BILIRUBIN Negative (Negative); BLOOD Negative (Negative); CLARITY Cloudy (Clear); COLOR Yellow (Yellow); GLUCOSE Negative (Negative); KETONE Negative (Negative); LEUKO ESTERASE Negative (Negative); NITRITE Negative (Negative); PH 5.5 (4.5-8.0); SPECIFIC GRAVITY 1.015 (1.001-1.030); UROBILINOGEN 0.2 E.U./dl (0.0-1.0)
[2024-10-21 02:09] LABS: EPITHELIAL CELLS 16-20; RBC 0-2 rbc/hpf (0-2); WBC 0-2 wbc/hpf (0-5)
[2024-10-21] MEDS ORDERED: MORPHINE Sulfate 2 MG/ML SYR IM ONE (02:30)
[2024-10-21] MEDS ORDERED: Ondansetron Hydrochloride 4 MG TAB SL ONE (02:30)
== END 2024-10-21 03:39 | disposition home or self-care (01) ==
LOC: ED 23:54
PROVIDERS: Internal Medicine
DX: I71.40 Abdominal aortic aneurysm, without rupture, unspecified (principal); K57.30 Diverticulosis of large intestine without perforation or abscess without bleeding; K59.00 Constipation, unspecified; D53.9 Nutritional anemia, unspecified; I12.9 Hypertensive chronic kidney disease with stage 1 through stage 4 chronic kidney disease, or unspecified chronic kidney disease; N18.32 Chronic kidney disease, stage 3b; E78.5 Hyperlipidemia, unspecified; Z79.899 Other long term (current) drug therapy; Z88.1 Allergy status to other antibiotic agents; Z98.890 Other specified postprocedural states

== ENCOUNTER → 2024-12-15 | Outpatient (CLI) | payer OTHER ==
[2024-12-15 12:06] LABS: BASO # 0.0 10*3/uL (0.0-0.1); BASO % 0.7 % (0.0-1.0); EOS # 0.2 10*3/uL (0.0-0.4); EOS % 2.6 % (1.0-4.0); MEAN CELL VOLUME 102.6 fl (81.0-99.0); MEAN CORPUSCULAR HGB 33.2 pg (27.0-31.0); MEAN PLATELET VOLUME 9.6 fl (9.6-12.3); MONO # 0.5 10*3/uL (0.1-1.0); MONO % 8.2 % (3.0-9.0); NEUT # 3.5 10*3/uL (2.3-7.9); NEUT % 57.7 % (47.0-73.0); NUCLEATED RED BLOOD CELL 0.0 % (0.0-0.0); NUCLEATED RED BLOOD CELL 0.0 10*3/uL (0.0-0.0); PLATELET COUNT AUTOMATED 261 10*3/uL (130-400); RED CELL DISTRI WIDTH 13.0 % (0-14.5)
[2024-12-15 12:58] LABS: VITAMIN D, 25-HYDROXY 45.5 ng/mL (30-100)
[2024-12-15 13:40] LABS: BUN 21.0 mg/dl (9-23); FREE T4 0.89 ng/dl (0.89-1.76); LDL CHOLESTEROL 93.0 mg/dL (9-159); SGPT/ALT 10.0 U/L (5-49)
== END | disposition home or self-care (01) ==
LOC: LAB 11:39
PROVIDERS: ATTEND Internal Medicine
DX: E55.9 Vitamin D deficiency, unspecified (principal); D51.9 Vitamin B12 deficiency anemia, unspecified; Z13.0 Encounter for screening for diseases of the blood and blood-forming organs and certain disorders involving the immune mechanism; Z13.1 Encounter for screening for diabetes mellitus; Z13.21 Encounter for screening for nutritional disorder; Z13.220 Encounter for screening for lipoid disorders; Z13.228 Encounter for screening for other metabolic disorders; Z13.6 Encounter for screening for cardiovascular disorders; Z13.89 Encounter for screening for other disorder